=== PATIENT | female | born 1960 | race Caucasian/White ===

== ENCOUNTER → 2016-12-27 | Outpatient (CLI) | payer OTHER ==
--- NOTE | ~2016-12-27 | CR150 ---
[facility] A Service of [facility] & [facility] RADIOLOGY TEXT RESULTS PATIENT: ODELL DUNN LOCATION: [facility] : 56 UNIT #: [id number] AGE: [address]: HARIS ROD SEX: F ORDER DR: [id number] [facility] [address] [place], [place] [address] [id number] O MR#: [id number] Acc #: [id number] NAME: ODELL DUNN : 1960 SEX: F STUDY DATE/TIME: 12/27/2016 15:36 UNIT: [facility] ROOM: STUDY DESCRIPTION: CR Hip Min 2 Views Lt Attending Physician: Shaq Carter Referring Physician: Shaq Carter Ordering Physician: Shaq Carter Primary Care Physician: Anika Carcamo M.D. MEDICAL IMAGING REPORT This report is preliminary unless electronic signature is present EXAM Left hip 12/27/2016 HISTORY A 56-year-old female with left hip pain for 2 weeks. COMPARISON STUDIES None. FINDINGS Two views of the left hip demonstrate no acute fracture or dislocation. Joint spaces are normally maintained. Bony pelvis, sacrum, SI joints appear intact. Soft tissues are unremarkable. IMPRESSION Unremarkable left hip. Dictated by... Jona Mo M.D. THIS IS AN ELECTRONICALLY VERIFIED REPORT Jona Mo M.D. at 12/28/2016 9:02 AM NARCISA/jose TD: 12/28/2016 05:11 JOB #: [id number] MEDICAL IMAGING REPORT Page 1 of 1 COPY
== END | disposition home or self-care (01) ==
LOC: CRAD 15:22
DX: M25.552 Pain in left hip (principal)
CPT/HCPCS: 73502